=== PATIENT | female | born 1980 | race Caucasian/White ===

== ENCOUNTER → 2023-10-29 08:29 | Outpatient (REF) | payer BC, SELFPAY | LOC: HWWDC 08:29 | PROVIDERS: ATTENDING PHYSICIAN Internal Medicine | DX: Z12.31 Encounter for screening mammogram for malignant neoplasm of breast (principal) | CPT/HCPCS: 77063; 77067 ==

== ENCOUNTER 2024-02-11 23:39 | Observation (INO) | payer BC, SELFPAY ==
[2024-02-11 19:32] VITALS: BP 148/89
--- NOTE | 2024-02-11 19:53 | ED.GENMED ---
History of Present Illness
<VEE Myers - Last Filed: 02/11/24 23:39>
General
Chief Complaint: Fever
Source: patient
Exam Limitations: none
Time Seen by Provider: 02/11/24 19:36
History of Present Illness
History of Present Illness:
This is a 43 year old female that comes in with c/o fever. States that she has had a fever for the past 7 days or so. States that her fever was 103. States that her whole body hurt. States that she tested for COVID on the second day and this was
negative. Then a couple days later her fever went down and then on Wednesday morning it was 104. States that she has been between 102-104 even with Advil and Tylenol. State that it is hard to turn her head side to sided. States that she has a
headache with some dizziness. Denies any chills, chest pain, SOB, abd pain, nausea, vomiting, diarrhea, urinary burning.
Past History
<VEE Myers - Last Filed: 02/11/24 23:39>
Past History
ED Past Medical History: Hypothyroidism and Other (Ulcers)
ED Past Surgical History: (X3)
Social History
Tobacco: Non-smoker
Alcohol: Occasional
Personal:
Living: with family
Employment: Employed
Review of Systems
<VEE Myers - Last Filed: 02/11/24 23:39>
Review of Systems
All Other Systems: ROS reviewed and negative except as documented in HPI and ROS
Constitutional: Reports fever; Denies chills
EENT: Reports no symptoms
Respiratory: Denies cough or trouble breathing
Cardiac: Reports no symptoms; Denies chest pain
ABD/GI: Reports no symptoms; Denies abdominal pain, nausea, vomiting or diarrhea
: Reports no symptoms; Denies dysuria, frequency or urgency
Musculoskeletal: Reports other (Whole body hurts)
Skin: Reports no symptoms
Neurological: Reports dizzy and headache
Psychiatric: Reports no symptoms
Phy Exam
<VEE Myers - Last Filed: 02/11/24 23:39>
General Physical Exam
General Presentation: no apparent distress
General age: appears stated age
General Skin: warm and dry
General Habitus: normal
General Mental: alert and tearful
General Hydration: appears well hydrated
ENT Exam
ENT Exam: TM's normal, pharynx normal and other (discomfort with chin to chest)
Eye Exam
Eye Exam: EOMI
Cardiovascular Exam
Cardiovascular Exam: no edema, no murmur, normal peripheral pulses and tachycardia
Pulmonary Exam
Pulmonary Exam: no respiratory distress, no rales, chest non tender, no rhonchi, no wheezing, no cough and other (Right sided pleuritic rub on Experation)
Gastrointestinal Exam
Gastrointestinal Exam: normal bowel sounds, non tender, soft, no organomegaly, no pulsatile mass and non distended
Musculoskeletal Exam
Musculoskeletal Exam: full ROM, no edema and other (Positive Kernigs)
Skin Exam
Skin Exam: normal color, warm/dry, no rash and no petechia
Psychiatric Exam
Psychiatric Exam: normal mood/affect
Course
<VEE Myers - Last Filed: 02/11/24 23:39>
Orders/Labs/Results
Orders:
Orders
02/11/24 19:53
0.9% Sodium Chloride 1000 ml [Nss] 1,000 ml IV BOLUS
02/11/24 20:00
Urinalysis Reflex To Culture Urgent
Date Specimen was Collected: 02/11/24
Time Specimen was Collected: 22:32
CR Chest - 2 Views Urgent
Comment:
Reason For Exam: fever
02/11/24 20:20
COVID-19 Antigen Urgent
Source: Nasal Swab
Complete Blood Count/With Diff Urgent
Lactate Level [Lactic Acid] Urgent
Influenza A+B Rapid Molecular Urgent
ANNE-MARIE Source: Nasal Swab
Specimen Description:
02/11/24 20:21
Comprehensive Metabolic Panel Urgent
Free T4 Urgent
TSH Reflex To Free T4 Urgent
Blood Culture Urgent
ANNE-MARIE Source: Blood/Venous
Specimen Description:
02/11/24 21:12
Blood Culture Urgent
ANNE-MARIE Source: Blood/Venous
Specimen Description:
02/11/24 21:26
Midazolam HCl [Versed] 5 mg .ROUTE .STK-MED ONE
02/11/24 21:28
Midazolam HCl [Versed] 1 mg IV NOW STA
02/11/24 21:47
Azithromycin 500 mg/250 ml [Zithromax Infusion] 500 mg in 250 ml IV NOW
CefTRIAXone [Rocephin] 2,000 mg IV NOW STA
02/11/24 21:56
Sterile Water [Sterile Water For Injection] 20 ml .ROUTE .STK-MED
02/11/24 21:57
Acetaminophen 1000MG/100Ml [Ofirmev] 1,000 mg in 100 ml .ROUTE .STK-MED
02/11/24 22:01
Acetaminophen 1000MG/100Ml [Ofirmev] 1,000 mg IV NOW STA
02/11/24 22:33
CSF Cell Count Routine
Date Specimen was Collected: 02/11/24
Time Specimen was Collected: 22:30
CSF Tube Number: 1
Spinal Fluid Glucose Urgent
Date Specimen was Collected: 02/11/24
Time Specimen was Collected: 22:30
CSF Tube Number: 2
Spinal Fluid Protein Urgent
Date Specimen was Collected: 02/11/24
Time Specimen was Collected: 22:31
CSF Tube Number: 2
CSF Culture with Gram Stain Urgent
ANNE-MARIE Source: Csf
Specimen Description:
Date Specimen was Collected: 02/11/24
Time Specimen was Collected: 22:30
Meningitis Panel, CSF by PCR Urgent
ANNE-MARIE Source: Csf
Specimen Description:
02/11/24 23:25
Admit/Transfer Patient As Directed
Co-Sign Provider:
Level of Care: Observation services
Assign to:: Medical/Surgical
Physician / Group: Franko
Diagnosis: Pneumonia
02/11/24 23:26
PRN Pain Medication Management As Directed
May give lesser potent ordered pain med per pt: Yes
preference::
Protocol:: Medication orders for pain may be administered in a
manner that supports deferring to patient preference
when the pt is:
- Requesting an ordered lesser potent pain medication.
Least to most potent pain medications are defined
as: acetaminophen < NSAID < tramadol < opioids
(morphine, oxycodone, hydromorphone).
- Requesting a lesser dose of the same medication IF
ORDERED.
- Requesting a less intrusive route of administration
if both routes are prescribed by the provider (PO <
IV).
02/11/24 23:27
Code Status As Directed
Resuscitation Status: Full Code
Abnormal Lab Results
02/11/24 02/11/24
20:20 20:21
RBC 3.97 L 10^6/uL
(4.20-5.40)
Hct 34.7 L %
(37.0-47.0)
MCH 31.5 H pg
(27.0-31.0)
Absolute Lymphs (auto) 0.6 L 10^3/uL
(1.2-3.4)
Neutrophils % 81.0 H %
(42.2-75.2)
Lymphocytes % 9.8 L %
(20.5-51.1)
Potassium 3.4 L mmol/L
(3.5-5.1)
Carbon Dioxide 20 L mmol/L
(22-30)
BUN 6 L mg/dl
(7-17)
Glucose 114 H mg/dl
(70-99)
AST 39 H U/L
(14-36)
ALT 42 H U/L
(0-35)
TSH (Reflex) 0.03 L uIU/ml
(0.47-4.68)
02/11/24 20:20
02/11/24 20:21
Glucose nonfasting. Lactic normal at 0.8, AST/ALT very slightly elevated. TSH very low (Hyperactive thyroid), Negative for COVID and Influenza.
Spinal fluid normal.
Vital Signs
Initial and Last Documented VS:
Initial Vital Signs
Temp Pulse Resp BP Pulse Ox
100.8 F H 112 20 148/89 96
02/11/24 19:32 02/11/24 19:32 02/11/24 19:32 02/11/24 19:32 02/11/24 19:32
Last Documented Vital Signs
Temp Pulse Resp BP Pulse Ox
100.1 F 97 20 124/92 96
02/11/24 21:45 02/11/24 23:00 02/11/24 23:00 02/11/24 23:00 02/11/24 23:00
<Byron Blevins MD - Last Filed: 02/11/24 21:59>
Orders/Labs/Results
Orders:
Orders
02/11/24 19:53
0.9% Sodium Chloride 1000 ml [Nss] 1,000 ml IV BOLUS
02/11/24 20:00
Urinalysis Reflex To Culture Urgent
Date Specimen was Collected: 02/11/24
Time Specimen was Collected: 22:32
CR Chest - 2 Views Urgent
Comment:
Reason For Exam: fever
02/11/24 20:20
COVID-19 Antigen Urgent
Source: Nasal Swab
Complete Blood Count/With Diff Urgent
Lactate Level [Lactic Acid] Urgent
Influenza A+B Rapid Molecular Urgent
ANNE-MARIE Source: Nasal Swab
Specimen Description:
02/11/24 20:21
Comprehensive Metabolic Panel Urgent
Free T4 Urgent
TSH Reflex To Free T4 Urgent
Blood Culture Urgent
ANNE-MARIE Source: Blood/Venous
Specimen Description:
02/11/24 21:12
Blood Culture Urgent
ANNE-MARIE Source: Blood/Venous
Specimen Description:
02/11/24 21:26
Midazolam HCl [Versed] 5 mg .ROUTE .STK-MED ONE
02/11/24 21:28
Midazolam HCl [Versed] 1 mg IV NOW STA
02/11/24 21:47
Azithromycin 500 mg/250 ml [Zithromax Infusion] 500 mg in 250 ml IV NOW
CefTRIAXone [Rocephin] 2,000 mg IV NOW STA
02/11/24 21:56
Sterile Water [Sterile Water For Injection] 20 ml .ROUTE .STK-MED
02/11/24 21:57
Acetaminophen 1000MG/100Ml [Ofirmev] 1,000 mg in 100 ml .ROUTE .STK-MED
02/11/24 22:01
Acetaminophen 1000MG/100Ml [Ofirmev] 1,000 mg IV NOW STA
02/11/24 22:33
CSF Cell Count Routine
Date Specimen was Collected: 02/11/24
Time Specimen was Collected: 22:30
CSF Tube Number: 1
Spinal Fluid Glucose Urgent
Date Specimen was Collected: 02/11/24
Time Specimen was Collected: 22:30
CSF Tube Number: 2
Spinal Fluid Protein Urgent
Date Specimen was Collected: 02/11/24
Time Specimen was Collected: 22:31
CSF Tube Number: 2
CSF Culture with Gram Stain Urgent
ANNE-MARIE Source: Csf
Specimen Description:
Date Specimen was Collected: 02/11/24
Time Specimen was Collected: 22:30
Meningitis Panel, CSF by PCR Urgent
ANNE-MARIE Source: Csf
Specimen Description:
02/11/24 23:25
Admit/Transfer Patient As Directed
Co-Sign Provider:
Level of Care: Observation services
Assign to:: Medical/Surgical
Physician / Group: Franko
Diagnosis: Pneumonia
02/11/24 23:26
PRN Pain Medication Management As Directed
May give lesser potent ordered pain med per pt: Yes
preference::
Protocol:: Medication orders for pain may be administered in a
manner that supports deferring to patient preference
when the pt is:
- Requesting an ordered lesser potent pain medication.
Least to most potent pain medications are defined
as: acetaminophen < NSAID < tramadol < opioids
(morphine, oxycodone, hydromorphone).
- Requesting a lesser dose of the same medication IF
ORDERED.
- Requesting a less intrusive route of administration
if both routes are prescribed by the provider (PO <
IV).
02/11/24 23:27
Code Status As Directed
Resuscitation Status: Full Code
Abnormal Lab Results
02/11/24 02/11/24
20:20 20:21
RBC 3.97 L 10^6/uL
(4.20-5.40)
Hct 34.7 L %
(37.0-47.0)
MCH 31.5 H pg
(27.0-31.0)
Absolute Lymphs (auto) 0.6 L 10^3/uL
(1.2-3.4)
Neutrophils % 81.0 H %
(42.2-75.2)
Lymphocytes % 9.8 L %
(20.5-51.1)
Potassium 3.4 L mmol/L
(3.5-5.1)
Carbon Dioxide 20 L mmol/L
(22-30)
BUN 6 L mg/dl
(7-17)
Glucose 114 H mg/dl
(70-99)
AST 39 H U/L
(14-36)
ALT 42 H U/L
(0-35)
TSH (Reflex) 0.03 L uIU/ml
(0.47-4.68)
02/11/24 20:20
02/11/24 20:21
Vital Signs
Initial and Last Documented VS:
Initial Vital Signs
Temp Pulse Resp BP Pulse Ox
100.8 F H 112 20 148/89 96
02/11/24 19:32 02/11/24 19:32 02/11/24 19:32 02/11/24 19:32 02/11/24 19:32
Last Documented Vital Signs
Temp Pulse Resp BP Pulse Ox
100.1 F 97 20 124/92 96
02/11/24 21:45 02/11/24 23:00 02/11/24 23:00 02/11/24 23:00 02/11/24 23:00
Procedures
<Byron Blevins MD - Last Filed: 02/11/24 21:59>
Lumbar Puncture
Indication for procedure:: headache, fever, neck pain--evaluate for PRODUCTION WEIGHER infection
Procedure completed by: Byron Blevins MD
Consent form signed: Yes
Anesthesia/sedation: 1% Lidocaine
Preparation: cleaned with Betadine
Position: decubitis
Needle Size: 20 gauge
Needle Type: Lumbar Needle
Number of attempts: 2
Dressing applied to puncture site: bandaid
Complications: none
<VEE Myers - Last Filed: 02/11/24 23:39>
MDM/Problems Addressed
Differential Diagnosis Includes:
Meningiti, Viral syndrome, COVID
MDM/Problems Addressed:
This is a 43 year old female that comes in with c/o fever. States that this has been going on for the past 7 days. States that her neck hurts when she turns her head side to side and chin to chest.
Will get labs. Possible Spinal tap. Dr. Blevins to see patient
Spinal tap done by dr. Blevins.
Back into see patient. Explained that so far the fluid from her spinal tap appears normal. She does have right lower lobe Pneumonia. Patient was give IV antibiotics. Will admit for further treatment. Hospitalist notified.
Chronic conditions affecting care:
NA
Acute Exacerbation and/or Progression of Chronic Illness:
NA
<VEE Myers - Last Filed: 02/11/24 23:39>
*Radiology
Radiology exam reviewed: preliminary read by ED provider (Chest- Lower lobe Pneumonia) and radiology read reviewed (Chest- right lower lobe Pneumonia. No evidence for associated pleural effusion)
*Pulse Oximetry
Patient hypoxic: no
*EKG
Interpreted by ED Provider?: NA
Rate: EKG- N/A
*T[employer]or Women'S Garment Alteration Interpretation
Rate: Tailor [employer] Garment Alteration- N/A
*Critical Care Note
Total Time (30-74mins, 75-104mins- exclusive of procedures): Not Applicable
ED Attending Note
<VEE Myers - Last Filed: 02/11/24 23:39>
-
Portions of this chart may have been created with voice recognition software.� Occasional wrong word or��sound alike� substitutions may have occurred due to the inherent limitations of voice recognition software.
<Byron Blevins MD - Last Filed: 02/11/24 21:59>
ED Attending Note
Patient seen and examined by attending physician: Yes
ED Attending Note:
I have seen and evaluated the patient with a [id number] encounter. I have spoken to the advance practicer provider and involved in the medical history, the physical exam, medical decision making.
Evaluation and management service: agree unless noted differently below.
Results interpretation: agree unless noted differently below.
Focused HPI: 43-year-old female with a past medical history of hypothyroidism presents for evaluation of fever, myalgias, headache. Patient reports symptoms have been ongoing for 7 days�she says that she has been febrile with a Tmax of 103 �F. She
has had a mild cough. Denies shortness of breath. Denies chest pain. She denies nausea/vomiting/diarrhea. She denies any urinary symptoms. She denies abdominal or flank pain. She complains mainly of fever and headache, says that she has severe
myalgias and some stiffness in her neck.
Physical exam: Awake alert not in distress. Tachycardic, febrile, otherwise normal vitals. No cardiac rubs gallops or murmurs appreciated, lungs clear to auscultation bilaterally. Abdomen nontender. She is photosensitive, pupils equal round and
reactive to light bilaterally. No gross neurologic deficits.
Medical Decision Makin-year-old female presents with febrile illness�fever, headache, myalgias x 7 days. She does have a mild cough. She had labs sent off including CBC which showed no leukocytosis, CMP which shows marginal hypokalemia,
marginal metabolic acidosis. Marginal transaminitis. Low TSH but normal T4. COVID-negative. Chest x-ray did show right lower lobe pneumonia but given that headache and neck stiffness will perform LP to rule out meningitis.
LP performed as documented in procedure note. Fluid clear. Follow-up on results. Cover with antibiotics. Plan for admission.
Discharge Plan
Departure
Patient Disposition: Admit
Date of Disposition: 02/11/24
Time of Disposition: 23:10
Admit to: Med/Surg
Presentation/result/management discussed w/ accepting MD/DO: Hospitalist
Patient with high blood pressure during this ER visit?: Yes
Condition: Good
Covid-19: Negative COVID-19
Discharge Problem:
Right lower lobe pneumonia
Prescriptions:
No Action
cetirizine [Zyrtec] 10 mg Tablet
10 mg PO DAILYPRN PRN (Reason: allergies)
acetaminophen [Tylenol Extra Strength] 500 mg Tablet
500 mg PO Q6HPRN PRN (Reason: mild pain)
ibuprofen [Advil] 200 mg Tablet
400 mg PO Q6HPRN PRN (Reason: mild pain)
levothyroxine [Synthroid] 200 mcg Tablet
200 mcg PO DAILY
Referrals:
UNKNOWN - PT DOES,NOT KNOW [Unknown Provider] -
Interventions
Interventions:
*Risk Screen - Suicide Last Done: 02/11/24 20:06
*General Assessment Last Done: 02/11/24 20:06
*Neglect/Abuse Screening Last Done: 02/11/24 20:06
ED- Fall Risk Assessment Last Done: 02/11/24 20:06
*ED COVID-19 Vaccine History Last Done: 02/11/24 20:06
ED- Neurological Assessment Last Done: 02/11/24 20:06
ED-Skin Assessment Last Done: 02/11/24 20:06
Discharge Date and Time
Print Language: CYMRO
[2024-02-11 20:06] VITALS: BMI 35.0
[2024-02-11 20:26] VITALS: BP 128/79
[2024-02-11] MEDS: NSS 1000 IV (20:26)
[2024-02-11 20:41] LABS: % Basophils 0.5 % (0-2); % Eosinophils 0.6 % (0-6); % Immature Granulocytes 0.3 % (0-0.5); % Lymphocytes 9.8 % (20.5-51.1); % Monocytes 7.8 % (1.7-9.3); Absolute Lymphocytes 0.6 10^3/uL (1.2-3.4); Absolute Monocytes 0.5 10^3/uL (0.1-0.6); Absolute Neutrophils 5.3 10^3/uL (1.4-6.5); Hematocrit 34.7 % (37.0-47.0); Hemoglobin 12.5 g/dL (12.0-16.0); Mean Corpuscular Hgb 31.5 pg (27.0-31.0); Mean Corpuscular Volume 87.4 fL (81.0-99.0); Mean Platelet Volume 9.5 fL (7.4-10.4); Nucleated Red Blood Cells % 0 %; Platelet Count 207 10^3/uL (130-400); Red Blood Cell Count 3.97 10^6/uL (4.20-5.40); Red Cell Dist. Width 11.8 % (11.5-14.5); White Blood Cell Count 6.6 10^3/uL (4.8-10.8)
[2024-02-11 20:49] LABS: Lactic Acid 0.8 mmol/L (0.7-2.0)
[2024-02-11 20:50] LABS: ALT (SGPT) 42 U/L (0-35); AST (SGOT) 39 U/L (14-36); Albumin 4.5 g/dl (3.5-5.0); Alkaline Phosphatase 88 U/L (38-126); Blood Urea Nitrogen 6 mg/dl (7-17); Calcium 9.6 mg/dl (8.4-10.2); Carbon Dioxide 20 mmol/L (22-30); Chloride 101 mmol/L (98-107); Estimated Creatinine Clearance 111 ml/min; Glucose 114 mg/dl (70-99); Potassium 3.4 mmol/L (3.5-5.1); Sodium 137 mmol/L (135-145); Total Bilirubin 0.6 mg/dl (0.2-1.3); Total Protein 7.2 g/dl (6.3-8.2); eGFR > 60.00
[2024-02-11 20:58] LABS: COVID-19 Antigen Negative (Negative)
[2024-02-11 21:20] LABS: TSH Reflex To Free T4 0.03 uIU/ml (0.47-4.68)
[2024-02-11] MEDS: VERSED 1 MG IV (21:29)
[2024-02-11 21:48] VITALS: BP 125/79
[2024-02-11 21:49] LABS: Free T4 1.43 ng/dl (0.78-2.19)
[2024-02-11 22:00] VITALS: BP 130/70
[2024-02-11] MEDS: OFIRMEV 1000 MG IV (22:01)
[2024-02-11] MEDS: ROCEPHIN 2000 MG IV (22:12)
[2024-02-11] MEDS: ZITHROMAX INFUSION 250 IV (22:26)
[2024-02-11 22:58] LABS: Spinal Fluid Glucose 63 mg/dl (40-70); Spinal Fluid Protein 31 mg/dl (12-60)
[2024-02-11 23:00] VITALS: BP 124/92
[2024-02-11 23:00] LABS: CSF Clarity Clear; CSF Color Colorless; CSF Tube # 4; Red Cell Count/CSF 1 mm^3; White Cell Count/CSF 2 mm^3 (0-5)
--- NOTE | 2024-02-11 23:30 | HPS.HSE ---
Addendum entered and electronically signed by Teto Abdul DO 02/11/24 23:57:
Patient seen and examined independently. Agree with findings and plan as set forth by Ngoc Richards PA-C.
Patient is a 43y F with PMH significant for hypothyroidism who presented to ED complaining of one week of intermittent fevers with myalgias and headaches. Mild non-productive cough. CXR in the ED shows posterior RLL infiltrate c/w pneumonia.
Given headaches, P was also performed in the ED. CSF analysis is thus far unremarkable.
Ass:
RLL Pneumonia
Hypothyroidism
Hypokalemia
Obesity due to excess calories
Plan:
Observe overnight for further evaluation and treatment.
IV abx for community acquired infection coverage.
Supportive care - including antipyretics, IVFs and encouraged caffeine intake for post-LP headaches.
Follow for clinical improvement.
Continue usual T4 supplementation.
Replace potassium and follow up repeat lytes.
Original Note:
Family Physician
-
Family Physician: Ian Stringer
Chief Complaint
-
Fever
History of Present Illness
Patient is a 43 y/o female past medical history of hypothyroidism who presents with fever. Patient reports persistent fevers over the past week. She reports fever was at the highest on Wednesday with a Tmax of 103F-104F. She reports associated
body aches, fatigue and headache. She reports mild cough that is non-productive. She denies shortness of breath. She denies abdominal, nausea, vomiting or diarrhea.
Medical History
Past Medical History
Past Medical History: Reports Hypothyroidism
Past Surgical History: Reports
Social History
Tobacco: Non-smoker
Alcohol: Occasional
Personal:
Living: With Family
Family History
Family History: Not pertinent
Allergies / Home Medications
Allergies reflects when Allergies were last updated in [employer].
Home Medications with original date entered in [employer]
Allergy/Medication List:
Allergies
Allergy/AdvReac Type Severity Reaction Status Date / Time
Latex, Natural Rubber Allergy Intermediate Rash Verified 04/25/19 08:45
Home Medications
acetaminophen 500 mg tablet (Tylenol Extra Strength) 500 mg PO Q6HPRN PRN mild pain 02/11/24
cetirizine 10 mg tablet (Zyrtec) 10 mg PO DAILYPRN PRN allergies 02/11/24
ibuprofen 200 mg tablet (Advil) 400 mg PO Q6HPRN PRN mild pain 02/11/24
levothyroxine 200 mcg tablet (Synthroid) 200 mcg PO DAILY 02/11/24
Review of Systems
-
A 12 point ROS was completed and negative except as noted: Yes
Constitutional: Reports Fever
Respiratory: Reports Cough
Cardiac: Denies Chest Pain or Palpitations
Abdomen/GI: Denies Abdominal Pain, Nausea, Vomiting or Diarrhea
Physical Exam
Vital Signs
Vital Signs
Temp Pulse Resp BP Pulse Ox
100.1 F 97 20 124/92 96
02/11/24 21:45 02/11/24 23:00 02/11/24 23:00 02/11/24 23:00 02/11/24 23:00
Physical Exam
General: Comfortable and Conversant
HEENT: Anicteric and Moist mucous membranes
Respiratory: Rhonchi (Right base) and Non Labored Respirations
Cardiac: S1/S2 and Regular Rhythm
GI: Soft and Non Tender
Rectal: Deferred by Provider
Musculoskeletal: No Clubbing, No Cyanosis and No Edema
Skin: Warm and Dry
Neuro: Awake, Alert, Oriented and Nonfocal/grossly intact
Psych: Calm
Laboratory Results
-
02/11/24 20:20
02/11/24 20:21
Laboratory Results
Lactic Acid 0.8 mmol/L (0.7-2.0) 02/11/24 20:20
Total Bilirubin 0.6 mg/dl (0.2-1.3) 02/11/24 20:21
AST 39 U/L (14-36) H 02/11/24 20:21
ALT 42 U/L (0-35) H 02/11/24 20:21
Alkaline Phosphatase 88 U/L (38-126) 02/11/24 20:21
Chest X-Ray:
Right lower lobe pneumonia. No evidence for associated pleural effusion.
Data Reviewed
-
Diagnostic Radiology: Report Reviewed by me
Lab Data: Labs Reviewed by me
Impression/Plan
-
Community-Acquired Pneumonia
-Continue Ceftriaxone and Zithromax
-Start Mucinex
-Encourage use of incentive spirometer
Hypokalemia
-Replace potassium
-Check magnesium
-Recheck labs in AM
Hypothyroidism
-Continue levothyroxine
DVT proph: Lovenox
Code Status: Full Code
[2024-02-12] VITALS: BP 111/73
[2024-02-12 00:07] LABS: Urine Albumin Negative (Neg - Trace); Urine Bilirubin Negative (Negative); Urine Character Clear (Clear); Urine Color Straw; Urine Glucose Negative (Negative); Urine Ketone 2+ (Negative); Urine Leukocyte Negative (Negative); Urine Nitrite Negative (Negative); Urine Occult Blood 1+ (Negative); Urine Specific Gravity 1.005 (<1.030); Urine Urobilinogen Negative (Neg - 1+)
[2024-02-12 00:18] LABS: Urine Squamous Cell >30 /LPF (Few)
[2024-02-12 00:19] LABS: Urine White Cell None Seen /HPF (0-5)
[2024-02-12 01:00] VITALS: BP 118/79; BMI 34.6
[2024-02-12] MEDS: KCL 270 MEQ IV (01:31)
[2024-02-12] MEDS: NSS 1000 IV (01:36)
[2024-02-12] MEDS: MOTRIN 400 MG PO (02:04)
--- NOTE | 2024-02-12 02:30 | PTCARENOTE ---
Receive pt from ER. Pt alert oriented X3, calm, cooperative and in no resp distress. Pt assist X1 to her bed with no balance issues. Pt oriented to the room, call stern within reach. VSS (T=97.8, HR=82, RR=18, TI=192/79, SpO2=95% on RA). Pt reports
mild dyspnea, but no chest pain, no cough. Pt also reports headache (7/10) and neck stiffness. Motrin 400mg given for headache. IVFs and potassium chloride infusing as per order. Will keep monitoring the pt.
[2024-02-12] MEDS: SYNTHROID 200 MCG PO (05:26)
[2024-02-12 05:42] LABS: Hematocrit 33.4 % (37.0-47.0); Hemoglobin 11.5 g/dL (12.0-16.0); Mean Corp Hgb Conc. 34.4 g/dL (33.0-37.0); Mean Corpuscular Hgb 31.3 pg (27.0-31.0); Mean Corpuscular Volume 90.8 fL (81.0-99.0); Mean Platelet Volume 9.5 fL (7.4-10.4); Platelet Count 179 10^3/uL (130-400); Red Blood Cell Count 3.68 10^6/uL (4.20-5.40); Red Cell Dist. Width 11.9 % (11.5-14.5); White Blood Cell Count 5.6 10^3/uL (4.8-10.8)
[2024-02-12 05:56] LABS: Blood Urea Nitrogen 5 mg/dl (7-17); Calcium 8.8 mg/dl (8.4-10.2); Carbon Dioxide 19 mmol/L (22-30); Chloride 107 mmol/L (98-107); Estimated Creatinine Clearance > 125 ml/min; Glucose 92 mg/dl (70-99); Magnesium 2.2 mg/dl (1.6-2.3); Potassium 3.9 mmol/L (3.5-5.1); Sodium 141 mmol/L (135-145); eGFR > 60.00
[2024-02-12 07:35] VITALS: BP 128/80
[2024-02-12] MEDS: MUCINEX 600 MG PO ×2 (09:13→20:55)
[2024-02-12] MEDS: MAXALT MLT (ORALLY DISINTEGRATING) 10 MG PO (10:49)
[2024-02-12] MEDS: VIBRAMYCIN 100 MG PO ×2 (11:57→20:55)
--- NOTE | 2024-02-12 12:21 | W.PN.HOSP.TC ---
Today's Communication/Plan
-
see note
Assessment / Plan
Assessment / Plan
Right lower lobe pneumonia. No evidence for associated pleural effusion.
1. Right lower lobe pneumonia
Sepsis - tachycardia/fever at POA
-patient have ongoing fever/headache/dry cough
-normal wbc count. afebrile in the night.
-Chest x-ray showing right lower lobe pneumonia
-Blood culture collected. UA/COVID neg.
-No GI/ complains.
-No other history of reported tick bite. Minimal LFT elevation or thrombocytopenia
-No recent procedures/no history of implanted devices
-No recent travel outside of states. Patient like hiking/camping on weekend
-Maintained on empiric Rocephin. Change azithromycin to doxycycline
2. Severe headache
-Patient got a lumbar puncture in ER essentially normal. Meningitis panel negative
-denies h/o of migraine
-Would recommend brain imaging if no improvement despite giving rizatriptan dose.
3. Hypothyroidism
-Maintain on home dose of levothyroxine
DVT PPX Lovenox
Full code
Total time spent : 53 mins
I personally saw and examined the patient.
I have reviewed all diagnostic interpretations and treatment plans as written.
Time includes patient management by me, time spent at the patients bedside, time to review lab and imaging results, discussing patient care, documentation in the medical record, and time spent with the family or caregiver and discussing care plan
with RN/Consultants.
Anticipated Discharge: 24 - 48 hours
Subjective/Interval History
-
Date of Service: February 12, 2024
afebrile in night
having significant headache
no nausea/vomiting overnight
some cough, no sputum production
Objective Data
-
Labs:
Laboratory Results
02/12/24
04:58
WBC 5.6
Hgb 11.5 L
Hct 33.4 L
Plt Count 179
Sodium 141
Potassium 3.9
Chloride 107
Carbon Dioxide 19 L
BUN 5 L
Creatinine 0.6
Glucose 92
Calcium 8.8
Vital Signs:
Vital Signs
Temp Pulse Resp BP Pulse Ox
98.6 F 74 16 128/80 96
02/12/24 07:35 02/12/24 07:35 02/12/24 07:35 02/12/24 07:35 02/12/24 08:40
I&O
02/11/24 02/12/24 02/13/24
06:59 06:59 06:59
Intake Total 370 / 370
Balance 370 / 370
Review of Systems
-
Respiratory: Reports Cough
Cardiac: Reports No Symptoms
Abdomen/GI: Reports No Symptoms
Physical Exam
-
HEENT: Negative Oxygen
Respiratory: Clear to Auscultation
Cardiac: Regular Rhythm and S1/S2; Negative Murmur
Neuro: Awake, Alert, Oriented and No Motor Deficits
[2024-02-12] MEDS: NSS IV (12:55)
[2024-02-12 13:00] VITALS: BP 156/92
[2024-02-12 13:14] LABS: Procalcitonin 0.07 ng/ml (0.0-0.25)
[2024-02-12] MEDS: COMPAZINE 10 MG IV ×2 (13:15→21:26)
[2024-02-12 15:20] VITALS: BP 146/91
--- NOTE | 2024-02-12 15:22 | CM ---
Met patient in rooml. She reports she is independent at home . She lives with and their 3 children.
they live in multi level home. NO DME, VNA or snf.
PCP Dr. mj Stringer
Pharmacy: [facility] [place] [place]
PLAN:Home no needs.
[2024-02-12] MEDS: LOVENOX 40 MG SC (17:14)
[2024-02-12] MEDS: STERILE WATER FOR INJECTION 10 ML IV (21:04)
[2024-02-12] MEDS: ROCEPHIN 1000 MG IV (21:04)
[2024-02-12 23:37] VITALS: BP 133/84
[2024-02-13] MEDS: SYNTHROID 200 MCG PO (05:38)
[2024-02-13 06:59] LABS: Hematocrit 35.7 % (37.0-47.0); Hemoglobin 12.4 g/dL (12.0-16.0); Mean Corp Hgb Conc. 34.7 g/dL (33.0-37.0); Mean Corpuscular Volume 89.3 fL (81.0-99.0); Mean Platelet Volume 9.3 fL (7.4-10.4); Platelet Count 196 10^3/uL (130-400); Red Cell Dist. Width 11.7 % (11.5-14.5); White Blood Cell Count 5.4 10^3/uL (4.8-10.8)
[2024-02-13 07:35] VITALS: BP 143/87
[2024-02-13] MEDS: MUCINEX 600 MG PO (08:38)
[2024-02-13] MEDS: VIBRAMYCIN 100 MG PO (08:38)
--- NOTE | 2024-02-13 08:46 | W.PN.HOSP.TC ---
Addendum entered and electronically signed by Warner Sauceda MD 02/13/24 14:38:
I saw and evaluated the patient. I reviewed the resident�s note and agree with findings and plan as documented in the resident�s note.
RLL community acquired pneumonia -clinically improved. Patient remains afebrile overnight. Blood culture remains negative. Discharge patient on short course of oral Omnicef and doxycycline therapy.
Headache -provided dose of rizatriptan followed by Compazine with improvement in symptoms. Instructed to follow-up with neurology in office if patient continues to have persistent headache issues.
Patient is cleared to be discharged home.
Original Note:
Today's Communication/Plan
-
Continue antibiotics
Continue triptan for headache
Discharge home
Assessment / Plan
Assessment / Plan
Right lower lobe pneumonia. No evidence for associated pleural effusion.
1. Right lower lobe pneumonia
Sepsis - tachycardia/fever at POA
-patient have ongoing fever/headache/dry cough
-normal wbc count. afebrile in the night.
-Chest x-ray showing right lower lobe pneumonia
-Blood culture collected, Preliminary growth demonstrated no growth after 18 to 24 hours. Final result pending.
-UA/COVID neg.
-No GI/ complains.
-No other history of reported tick bite. Minimal LFT elevation or thrombocytopenia
-No recent procedures/no history of implanted devices
-No recent travel outside of states. Patient like hiking/camping on weekend
-Rocephin day 3, doxycycline day 2
-Patient will be discharged on Omnicef 300 BID for 3 days and Doxycycline 100 BID for 3 days
2. Severe headache
-Patient got a lumbar puncture in ER essentially normal. Meningitis panel negative
-denies h/o of migraine
-Patient started on rizatriptan, improved headache well-controlled on new medication
3. Hypothyroidism
-Maintain on home dose of levothyroxine
DVT PPX Lovenox
Full code
Anticipated Discharge: Today
Subjective/Interval History
-
Date of Service: February 13, 2024
Patient reports headaches are well-controlled on triptan
New onset cough, no shortness of breath
Objective Data
-
Labs:
Laboratory Results
02/13/24 02/13/24
06:47 08:06
WBC 5.4
Hgb 12.4
Hct 35.7 L
Plt Count 196
Sodium Cancelled Pending
Potassium Cancelled Pending
Chloride Cancelled Pending
Carbon Dioxide Cancelled Pending
BUN Cancelled Pending
Creatinine Cancelled Pending
Glucose Cancelled Pending
Calcium Cancelled Pending
Vital Signs:
Vital Signs
Temp Pulse Resp BP Pulse Ox
98.3 F 84 16 143/87 96
02/13/24 07:35 02/13/24 07:35 02/13/24 07:35 02/13/24 07:35 02/13/24 07:35
I&O
02/12/24 02/13/24 02/14/24
06:59 06:59 06:59
Intake Total 370 / 370 0 / 0
Balance 370 / 370 0 / 0
Review of Systems
-
History Source: Patient
Constitutional: Reports No Symptoms
Respiratory: Reports Cough; Denies Trouble Breathing
Cardiac: Reports No Symptoms
Abdomen/GI: Reports No Symptoms
Physical Exam
-
General: Well Developed, Well Nourished, No Apparent Distress and Conversant
Respiratory: Other (Crackles in the right lower lobe)
Cardiac: Regular Rhythm and S1/S2
GI: Soft, Nontender, Nondistended and Normal Bowel Sounds
Musculoskeletal: No Edema
Skin: Warm and Dry
Neuro: Awake, Alert, Oriented and AO x 3
Psych: Calm and Intact Judgement/Insight
Data Reviewed
-
Labs: Labs Reviewed by me and Discussed with Physician
[2024-02-13 09:05] LABS: Blood Urea Nitrogen 6 mg/dl (7-17); Calcium 9.2 mg/dl (8.4-10.2); Carbon Dioxide 19 mmol/L (22-30); Chloride 105 mmol/L (98-107); Estimated Creatinine Clearance > 125 ml/min; Glucose 91 mg/dl (70-99); Potassium 4.1 mmol/L (3.5-5.1); Sodium 140 mmol/L (135-145); eGFR > 60.00
--- NOTE | 2024-02-13 11:41 | CM ---
Patient for discharge home today. Patient has no needs and stated she has a ride home. CM will continue to follow for discharge planning needs.
Plan; home with no needs.
--- NOTE | 2024-02-13 13:59 | W.DCSUMMARY ---
Addendum entered and electronically signed by Warner Sauceda MD 02/13/24 14:37:
Read, reviewed, and agree. See same day progress note for additional details. Time spent coordinating care, DC planning, review of DC plan of care with resident, transition of care, review of records in EMR, med rec, consults, notes, d/w
consultants, nursing, family, and CM mins
Original Note:
Documented by User: Kadeem Bahena DO, Resident 02/13/24 14:17
Discharge Summary
Discharge Data
Date of Admission: 02/11/24
Date of Discharge: 02/13/24
-
Pending Results: No
Hospital Course
Discharging Physician : Sohail Bahena
Disposition : Home
Primary care physician : Dr. Stringer
Principal Discharge diagnosis : Right lower lobe pneumonia
Chronic Discharge diagnosis : headache, hypothyroidism
Hospital Course : 43-year-old female past medical history of hypothyroidism presents to the ED for 1 week of intermittent fevers myalgias and headaches as well as a mild nonproductive cough chest x-ray in the ED shows a posterior right lower lobe
infiltrate that was consistent with pneumonia. Given her headaches patient also received a lumbar puncture in the ED CSF analysis was unremarkable. Patient was admitted to [facility] for further management. Patient was empirically started on
ceftriaxone and azithromycin, 1 day after admission and azithromycin was changed to doxycycline. Patient received 3 days total of ceftriaxone and 2 days total of doxycycline. Patient's headaches persisted throughout her stay, eventually patient was
treated with rizatriptan and her headaches had improved. Patient says that these headaches started prior to her admission they are bilateral in the front and occiput. Consistent with tension headaches. Eventually patient started feeling much
better and she was discharged home on Omnicef 300 mg twice daily for 3 days and doxycycline 100 mg twice daily for 3 days patient will follow-up with her primary care physician within 1 week of discharge who will determine if patient requires any
further antibiotic treatment. Primary care physician will also discuss the headaches if they still persist.
Important imaging findings :
02/11/2024 chest x-ray, impression:
Right lower lobe pneumonia. No evidence for associated pleural effusion.
Procedure findings :
No procedures
Discharge Plan
-
Patient Disposition: Home (Routine Discharge)
Discharge Diagnosis/Procedures: Right lobe Pneumonia
Condition: Fair
Diet: Regular
Activity: As tolerated
Driving Restrictions: As prior to admission
Referrals:
Ian Stringer MD [Family Provider] - in one week
Prescriptions:
New
cefdinir 300 mg capsule
300 mg PO BID 3 Days Qty: 6 0RF
doxycycline hyclate 100 mg capsule
100 mg PO BID Qty: 6 0RF
Continued
cetirizine [Zyrtec] 10 mg Tablet
10 mg PO DAILYPRN PRN (Reason: allergies)
acetaminophen [Tylenol Extra Strength] 500 mg Tablet
500 mg PO Q6HPRN PRN (Reason: mild pain)
ibuprofen [Advil] 200 mg Tablet
400 mg PO Q6HPRN PRN (Reason: mild pain)
levothyroxine [Synthroid] 200 mcg Tablet
200 mcg PO DAILY
Discharge Orders:
Discharge Patient (As Directed); Ordered 02/13/24
Ordered By: Warner Sauceda
Discharge Date and Time
Discharge Date/Time: 02/13/24 11:30
Print Language: SLOVENIAN

Documented by User: Warner Sauceda MD 02/13/24 14:37
Discharge Summary
Discharge Data
Date of Admission: 02/11/24
Date of Discharge: 02/13/24
Discharge Plan
-
Patient Disposition: Home (Routine Discharge)
Discharge Diagnosis/Procedures: Right lobe Pneumonia
Condition: Fair
Diet: Regular
Activity: As tolerated
Driving Restrictions: As prior to admission
Referrals:
Ian Stringer MD [Family Provider] - in one week
Prescriptions:
New
cefdinir 300 mg capsule
300 mg PO BID 3 Days Qty: 6 0RF
doxycycline hyclate 100 mg capsule
100 mg PO BID Qty: 6 0RF
Continued
cetirizine [Zyrtec] 10 mg Tablet
10 mg PO DAILYPRN PRN (Reason: allergies)
acetaminophen [Tylenol Extra Strength] 500 mg Tablet
500 mg PO Q6HPRN PRN (Reason: mild pain)
ibuprofen [Advil] 200 mg Tablet
400 mg PO Q6HPRN PRN (Reason: mild pain)
levothyroxine [Synthroid] 200 mcg Tablet
200 mcg PO DAILY
Discharge Orders:
Discharge Patient (As Directed); Ordered 02/13/24
Ordered By: Warner Sauceda
Discharge Date and Time
Discharge Date/Time: 02/13/24 11:30
Print Language: SLOVENIAN
== END 2024-02-13 11:30 | disposition home or self-care (01) ==
LOC: 4 EAST ACU 23:39
PROVIDERS: Clinical Nurse Specialist Family Health; Physician Assistant Medical; ADMITTING PHYSICIAN Hospitalist; ATTENDING PHYSICIAN Hospitalist; EMERGENCY PHYSICIAN Emergency Medicine; FAMILY PHYSICIAN Internal Medicine
DX: J18.9 Pneumonia, unspecified organism (principal); R50.9 Fever, unspecified; R51.9 Headache, unspecified; R42 Dizziness and giddiness; E03.9 Hypothyroidism, unspecified; E66.09 Other obesity due to excess calories; R00.0 Tachycardia, unspecified; R74.01 Elevation of levels of liver transaminase levels; M79.10 Myalgia, unspecified site; E87.6 Hypokalemia; R05.9 Cough, unspecified; E87.20 Acidosis, unspecified; Z11.52 Encounter for screening for COVID-19; Z68.34 Body mass index [BMI] 34.0-34.9, adult; Z91.040 Latex allergy status; Z79.890 Hormone replacement therapy
CPT/HCPCS: 62270; 71046; 80048; 80053; 81003; 81015; 82945; 83605; 83735; 84145; 84157; 84439; 84443; 85025; 85027; 87015; 87040; 87070; 87205; 87483; 87502; 87811; 89051; 96361; 96365; 96375; 99285; G0378